=== PATIENT | female | born 2000 | race Caucasian/White ===

== ENCOUNTER 2022-05-14 00:25 | Emergency (ER) | payer OTHER | END 2022-05-14 00:55 | disposition home or self-care (01) | LOC: FER 00:25 | DX: S90.32XA Contusion of left foot, initial encounter (principal); W23.0XXA Caught, crushed, jammed, or pinched between moving objects, initial encounter; Y92.89 Other specified places as the place of occurrence of the external cause; Y99.0 Civilian activity done for income or pay | CPT/HCPCS: 73600; 73620; J1885 ==